=== PATIENT | male | born 1950 | race Caucasian/White ===

== ENCOUNTER 2017-10-31 13:29 | Emergency (ER) | payer MEDICARE, BC ==
[2017-10-31] MEDS ORDERED: Proparacaine 0.5% Ophth Soln 15 ML Bottle EYEBOTH STA (14:25)
--- NOTE | 2017-10-31 14:43 | EDM.PDOC ---
ED HPI GENERAL MEDICAL PROBLEM - General Chief Complaint: Eye Problems Stated Complaint: SOMETHING IN LEFT EYE Time Seen by Provider: 10/31/17 14:24 Source of Information: Reports: Patient, RN Notes Reviewed History Limitations: Reports: No Limitations - History of Present Illness INITIAL COMMENTS - FREE TEXT/NARRATIVE: 66-year-old gentleman presents to the emergency department today with complaint of foreign body in his left eye, he is not sure what he was exposed to just noticed it after he was mowing grass. He has no difficulty with his vision and declined the vision screening left eye Pain Score (Numeric/FACES): 3 - Related Data Allergies Allergy/AdvReac Type Severity Reaction Status Date / Time Efvoqyf-Cxn-Ion Reductase Allergy Muscle Verified 10/31/17 14:08 Inhibitor Weakness Home Meds: Home Meds Allopurinol [Zyloprim] 300 mg PO DAILY 10/31/17 [History] Diltiazem HCl [Diltiazem 24Hr ER] 240 mg PO DAILY 10/31/17 [History] Etanercept [Enbrel] 50 mg SQ WEEKLY 10/31/17 [History] Methotrexate Sodium/PF [Methotrexate 25 mg/ml Vial] 20 mg SUBCUT WEEKLY [History] Rivaroxaban [Xarelto] 20 mg PO DAILY 10/31/17 [History] Spironolactone [Aldactone] 37.5 mg PO DAILY 10/31/17 [History] Past Medical History Cardiovascular History: Reports: Afib, High Cholesterol, Hypertension Respiratory History: Reports: Sleep Apnea Genitourinary History: Reports: Prostate Disorder Musculoskeletal History: Reports: Fracture, Gout, RA Endocrine/Metabolic History: Reports: Obesity/BMI 30+, Vitamin D Deficiency Hematologic History: Reports: Folic Acid Immunologic History: Reports: Immunosuppression - Past Surgical History HEENT Surgical History: Reports: Tonsillectomy GI Surgical History: Reports: Colonoscopy Social & Family History - Tobacco Use Smoking Status *Q: Never Smoker - Caffeine Use Caffeine Use: Reports: Coffee - Recreational Drug Use Recreational Drug Use: No ED ROS GENERAL - Review of Systems Review Of Systems: See Below HEENT: Reports: Eye Discharge, Eye Pain ED EXAM GENERAL W FULL EYE - Physical Exam Exam: See Below Exam Limited By: No Limitations General Appearance: Alert, WD/WN, No Apparent Distress Eye Exam: Bilateral Eye: EOMI, Normal Inspection, PERRL Eyelids: Bilateral: Normal Appearance Conjunctiva & Sclera: Left: Foreign Body (No foreign body was discovered), Bilateral: Normal Appearance Cornea Exam: Left: Corneal Abrasion (No abrasion underneath fluoroscopy seen stain noted), Examined with Flourescein, Bilateral: Normal Appearance Extraocular Movements: Bilateral: Intact Pupils: Normal Accommodation Pupillary Size: Bilateral: 4 mm Pupillary Reaction: Bilateral: Brisk Anterior Chamber: Bilateral: Normal Appearance Course - Vital Signs Last Recorded V/S: Last Vital Signs Temp 97.2 F 10/31/17 14:19 Pulse 85 10/31/17 14:19 Resp 16 10/31/17 14:19 BP 120/86 10/31/17 14:19 Pulse Ox 98 10/31/17 14:19 - Orders/Labs/Meds Meds: Medications Discontinued Medications Generic Name Dose Route Start Last Admin Trade Name Freq PRN Reason Stop Dose Admin Proparacaine HCl 1 ml 10/31/17 14:25 Proparacaine 0.5% Ophth Soln EYEBOTH 10/31/17 14:26 NOW STA Departure - Departure Time of Disposition: 14:42 Disposition: Home, Self-Care 01 Condition: Good Clinical Impression: Foreign body of left eye Qualifiers: Encounter type: initial encounter Qualified Code(s): T15.92XA - Foreign body on external eye, part unspecified, left eye, initial encounter - Discharge Information Referrals: PCP,None [Primary Care Provider] - Additional Instructions: Use the eyedrops until reevaluated by eye care provider, call return to the emergency department worsening of symptoms - Assessment/Plan Plan: Assessment Acuity = acute Site and laterality = foreign body sensation left eye Etiology = probably related to exposure to dust and debris Manifestations = none Location of injury = Home Lab values = none Plan After fluorescein staining Cornel lens was used to flush the eye with copious amounts of normal saline, proparacaine was used to tolerate this procedure, he' ll be placed on gentamicin ophthalmic drops his tetanus is up-to-date follow-up with eye care provider in 2-3 days for reevaluation This note was dictated using [employer] recognition software please call with any questions on syntax or grammar.
== END 2017-10-31 14:53 | disposition home or self-care (01) ==
LOC: JP.ED 13:29
DX: T15.92XA Foreign body on external eye, part unspecified, left eye, initial encounter (principal); I10 Essential (primary) hypertension; E78.00 Pure hypercholesterolemia, unspecified; E66.9 Obesity, unspecified; Z79.899 Other long term (current) drug therapy; Z88.8 Allergy status to other drugs, medicaments and biological substances
CPT/HCPCS: 99283; A9270